=== PATIENT | male | born 2000 | race Hispanic/Latino ===

== ENCOUNTER 2024-03-30 10:08 | Emergency (ER) | payer OTHER ==
[~2024-03-30] VITALS: Ht 182.9 cm; Wt 89.5 kg
[2024-03-30 10:20] VITALS: PULSE 100; RESP 16; TEMP 96.7
[2024-03-30] MEDS: ONDANSETRON HCL 4 MG ORAL DISINTEGRATING TAB PO ONE (11:04)
[2024-03-30] MEDS ORDERED: TAMIFLU75 MG PO (11:42)
[2024-03-30] MEDS ORDERED: ONDANSETRON ODT4 MG PO (11:43)
[2024-03-30 11:52] VITALS: BP 130/81; PULSE 84; RESP 18; TEMP 96.6; O2SAT 98
== END 2024-03-30 11:52 | disposition home or self-care (01) ==
LOC: FSED 10:16
DX: R11.2 Nausea with vomiting, unspecified (principal); J10.1 Influenza due to other identified influenza virus with other respiratory manifestations; R10.84 Generalized abdominal pain; R42 Dizziness and giddiness; Z11.52 Encounter for screening for COVID-19
CPT/HCPCS: 0223U; 83518; 87400; 99284; Q0162

== ENCOUNTER 2024-06-20 13:05 | Emergency (ER) | payer OTHER ==
[~2024-06-20] VITALS: Ht 180.3 cm; Wt 85.4 kg
[~2024-06-20 13:05] MED LIST: ONDANSETRON ODT4 MG PO; TAMIFLU75 MG PO
[2024-06-20] MEDS: ONDANSETRON HCL INJ 2MG/ML 2ML 2 MG/ML VIAL IV STA (14:10)
[2024-06-20] MEDS: SODIUM CHLORIDE 0.9% 1000ML 1,000 ML IV ONE (14:11)
[2024-06-20 15:26] VITALS: PULSE 75; RESP 19; TEMP 98.7; O2SAT 98
== END 2024-06-20 16:13 | disposition home or self-care (01) ==
LOC: FSED 13:10
DX: R11.2 Nausea with vomiting, unspecified (principal); B34.9 Viral infection, unspecified; R05.9 Cough, unspecified; R53.1 Weakness; R53.81 Other malaise; Z11.52 Encounter for screening for COVID-19
CPT/HCPCS: 0223U; 71046; 80053; 80076; 81003; 85025; 85379; 86308; 87400; 99284; J2405; J7030